=== PATIENT | male | born 1965 | race Caucasian/White ===

== ENCOUNTER 2022-12-31 14:58 | Outpatient (CLI) | payer OTHER, SELFPAY ==
--- NOTE | ~2022-12-31 | US_ITS ---
EXAMINATION: US venous doppler LE RT DATE: 12/31/2022 15:58 INDICATION: Right lower limb pain and swelling TECHNIQUE: Grayscale ultrasound images without and with compression and Doppler ultrasound images of the right lower extremity veins were obtained. COMPARISON: None. FINDINGS: The visualized portions of right common femoral vein, profunda (deep) femoral vein, femoral vein, pop liteal vein, peroneal trunk, posterior tibial veins, peroneal veins, gastrocnemius vein and greater s aphenous vein outflow are patent. There is a long narrow Carmona's cyst originating at the right poplit eal fossa and which extends 11 cm craniocaudally along the superficial margin of the gastrocnemius mu scle. 1.2 cm echogenic and shadowing loose osteochondral body within the Carmona's cyst. IMPRESSION: 1. No deep venous thrombosis in the right lower limb. 2. Carmona's cyst. Reviewed, dictated and finalized at location A.
== END 2022-12-31 14:59 | disposition home or self-care (01) ==
PROVIDERS: PCP Family Medicine; Visit Provider Nurse Practitioner
DX: R60.0 Localized edema (principal); M71.21 Synovial cyst of popliteal space [Baker], right knee
CPT/HCPCS: 93971

== ENCOUNTER → 2023-01-13 07:07 | Outpatient (CLI) | payer OTHER, SELFPAY ==
--- NOTE | ~2023-01-13 | XR_ITS ---
Right Knee Technique: AP, lateral, and sunrise views were obtained. Clinical History: Pain Findings: No fracture or dislocation is seen. Osseous alignment is anatomic. Joint spaces are preserv ed without degenerative or erosive change. There is a 1.1 cm mineralized/ossified density posterior a spect of the knee centrally.. No joint effusion is seen. Impression: 1.1 cm calcified/ossified structure at the posterior aspect of the knee in the midline. This could re flect loose body, possibly within a Carmona's cyst. Other nonspecific soft tissue lesion cannot be excl uded. Reviewed, dictated and finalized at location M. Impression: 1.1 cm calcified/ossified structure at the posterior aspect of the knee in the midline. This could reflect loose body, possibly within a Carmona's cyst. Other n onspecific soft tissue lesion cannot be excluded.
== END ==
PROVIDERS: PCP Nurse Practitioner; Visit Provider Nurse Practitioner
DX: M25.561 Pain in right knee (principal)
CPT/HCPCS: 73562

== ENCOUNTER 2023-03-13 06:39 | Outpatient (CLI) | payer OTHER, SELFPAY ==
--- NOTE | ~2023-03-13 | MR_ITS ---
MRI of the right knee Clinical history: Pain Technique: Coronal proton density and proton density-weighted images, sagittal proton-density and T2 fat-sat images, and axial proton-density fat-saturated images were acquired. Findings: Anterior and posterior cruciate ligaments are intact. Medial collateral ligament and the la teral collateral ligament complex are intact. Popliteus tendon is intact. There is possible subtle oblique tear of the posterior horn of the medial meniscus. No lateral menisc al tear seen. There is mild tricompartmental chondral thinning. Bone marrow signals are unremarkable. Extensor mechanism is intact. Small joint effusion is present. There is a large Carmona's cyst, which c ontains a 7 mm loose body. Impression: Large Carmona's cyst which contains a 7 mm loose body. Small underlying joint effusion. Questionable subtle oblique tear of the posterior horn of the medial meniscus. Mild tricompartmental chondral thinning. Reviewed, dictated and finalized at [facility]. Impression: Large Carmona's cyst which contains a 7 mm loose body. Small underlying joint eff usion. Questionable subtle oblique tear of the posterior horn of the medial meniscus. Mild tricompartmental chondral thinning.
== END 2023-03-13 06:40 | disposition home or self-care (01) ==
PROVIDERS: PCP Family Medicine; Visit Provider Nurse Practitioner
DX: M25.461 Effusion, right knee (principal); M17.11 Unilateral primary osteoarthritis, right knee; M71.21 Synovial cyst of popliteal space [Baker], right knee
CPT/HCPCS: 73721

== ENCOUNTER 2023-03-17 11:12 | Outpatient (CLI) | payer OTHER, SELFPAY ==
--- NOTE | ~2023-03-17 | US_ITS ---
EXAMINATION: US knee asp inj w image RT DATE: 03/17/2023 12:52 INDICATION: Right knee pain. TECHNIQUE: The procedure including the risks, benefits, and alternatives was discussed with the patie nt. Risks discussed included bleeding and infection. The patient understood the risks and agreed to p roceed. The skin overlying the right knee was prepped and draped in usual sterile fashion. Anestheti c was administered with 1% lidocaine subcutaneously. An 18 gauge needle was inserted into the right knee joint under ultrasound guidance. Fluid was aspirated. The entry site was cleaned and dressed. T here were no immediate complications. FINDINGS: Ultrasound images demonstrate the right knee joint effusion. There is a right Carmona's cyst. IMPRESSION: 1. Ultrasound-guided needle aspiration of the right knee joint yielding 15 mL clear, yellow fluid. Reviewed, dictated and finalized at location A. IMPRESSION: 1. Ultrasound-guided needle aspiration of the right knee joint yielding 15 mL c lear, yellow fluid.
[2023-03-17 13:54] LABS: Crystals Synovial Fluid None Seen (None Seen)
[2023-03-17 14:00] LABS: Color Synovial Fluid Yellow (Colorless); Source Synovial Fluid Synovial fluid
[2023-03-17 14:01] LABS: Appearance Synovial Fluid Clear (Clear)
[2023-03-17 14:02] LABS: Lymphocytes Synovial Fluid 3 %; Macrophages Synovial Fluid 84 %
[2023-03-17 14:03] LABS: Other Cells Synovial Fluid 13 %
[2023-03-17 14:04] LABS: Nucleated Cell Synovial Fluid 160 /uL (0-200); RBC Synovial Fluid < 2000 /uL (0-0)
== END 2023-03-17 11:13 | disposition home or self-care (01) ==
LOC: ANHIMG 11:13
PROVIDERS: PCP Family Medicine; Visit Provider Nurse Practitioner
DX: M25.561 Pain in right knee (principal); M25.461 Effusion, right knee
CPT/HCPCS: 20611; 87070; 87075; 87205; 89051; 89060

== ENCOUNTER 2023-03-26 11:36 | Emergency (ER) | payer OTHER, SELFPAY ==
[2023-03-26 11:49] VITALS: BP 145/82; PULSE 88; RESP 17; TEMP 36.2; O2SAT 99
[2023-03-26] MEDS: KETOROLAC (*BKC) 60 MG/2 ML VIAL IM (12:49)
[2023-03-26 12:57] LABS: Basophils Percent Auto 0.8 % (0.2-1.2); Eosinophils Absolute Auto 0.1 K/mm3 (0-0.3); Eosinophils Percent Auto 1.4 % (0-4.4); Hematocrit 40.1 % (42.0-52.0); Hemoglobin 13.7 g/dL (14.0-18.0); Immature Granulocyte Absolute 0.01 K/mm3 (0.00-0.031); Immature Granulocyte Percent A 0.2 % (0-0.5); Lymphocytes Absolute Auto 1.53 K/mm3 (0.9-3.2); Lymphocytes Percent Auto 29.8 % (18.3-44.2); Mean Corpuscular HGB Conc 34.2 g/dl (32-36); Mean Corpuscular Hemoglobin 30.2 pg (26-34); Mean Corpuscular Volume 88.3 fl (80-100); Mean Platelet Volume 9.3 fl (7.4-10.4); Monocytes Absolute Auto 0.6 K/mm3 (0.1-0.6); Monocytes Percent Auto 10.7 % (2.6-8.5); Neutrophils Absolute Auto 2.9 K/mm3 (1.3-6.7); Neutrophils Percent Auto 57.1 % (45.5-73.1); Platelet Count Result 185 k/mm3 (150-375); Red Blood Count 4.54 M/mm3 (4.6-6.20); Red Cell Distribution Width 12.5 % (11.5-14.5); White Blood Count 5.1 K/mm3 (4.5-10.0)
[2023-03-26 13:24] LABS: Alanine Aminotransferase 33 U/L (6-50); Albumin Level 4.2 g/dL (3.5-5.1); Alkaline Phosphatase 59 U/L (38-126); Anion Gap 4 mmol/L (8-16); Aspartate Amino Transferase 30 U/L (17-59); Bilirubin,Total 1.1 mg/dL (0.2-1.3); Blood Urea Nitrogen 15 mg/dL (9-20); CRP 0.5 mg/dL (<1.0); Calcium 8.6 mg/dL (8.4-10.2); Carbon Dioxide 28 mmol/L (22-30); Chloride 104 mmol/L (98-107); Estimated CRCL calculation 115 ml/min; Estimated Glomerular Filt Rate > 60; Glucose 88 mg/dL (65-110); Potassium 3.9 mmol/L (3.4-5.0); Sodium 136 mmol/L (137-145)
[2023-03-26 13:55] LABS: Erythrocyte Sedimentation Rate 11 mm/hr (0-20)
--- NOTE | 2023-03-26 14:02 | ED.LOWEXIN ---
HPI - Extremity Injury (Lower) General Chief Complaint: Extremity Injury, Lower Stated Complaint: R Knee pain/ possible infection Time Seen by Provider: 03/26/23 11:59 History of Present Illness HPI Narrative: Patient is a 57-year-old male who presents ER with right knee pain. Ongoing for months associate with lower extremity edema. Originally had a ultrasound that was negative for DVT. Subsequent imaging showed a meniscal tear as well as Carmona's cyst with a loose body. Patient underwent joint aspiration on 03/23/2023. The fluid had no organisms and only had a bit of blood in it. Patient reports increased pain with walking over the last couple days. He was concerned his knee may be warm and red. He was referred to the ER for further evaluation. Patient saw Dr. Connor. Related Data Allergies Allergy/AdvReac Type Severity Reaction Status Date / Time No Known Allergies Allergy Verified 03/26/23 11:59 Review of Systems Review of Systems: All systems reviewed & are unremarkable except as noted in HPI and below Constitutional: Constitutional: Denies chills, Denies fatigue and Denies fever(s) ENT: Denies nasal congestion and Denies sore throat Cardiovascular: Cardiovascular: Denies chest pain, Denies rapid heart rate and Denies radiating jaw, neck or arm pain Respiratory: Respiratory: Denies cough and Denies dyspnea Musculoskeletal: Musculoskeletal: Denies arthralgias and Reports joint swelling PMFSH Past Medical History Medical History (Updated 03/26/23 @ 14:33 by Tenzin Ang MD) Carmona's cyst Daytime hypersomnia Generalized anxiety disorder Major depressive disorder, recurrent, moderate Surgical History Surgical History (Updated 03/26/23 @ 14:04 by Tenzin Ang MD) No pertinent past surgical history Family History Family History Father Pancreatic cancer Social History Social History Smoking status: Never smoker Alcohol intake: current Drinks per week: 4 Substance use: never Current Housing: Decline to Answer Concerned About Future Housing: Decline to Answer Difficulty Paying Gas/Electric Bills: Decline to Answer Difficulty Paying for Meds: Decline to Answer Currently Unemployed: Decline to Answer Education: Decline to Answer Difficulty w/ Childcare or Family Care: Decline to Answer Living arrangements: with family Occupation/Education: occupation 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 HEAD: Normocephalic, atraumatic. ENT: Mucous membranes moist. CHEST: Clear to auscultation. No respiratory distress. HEART: Regular rate and rhythm. Normal peripheral pulses. ABDOMEN: Soft, nontender, nondistended. EXTREMITIES: Mild edema right lower extremity. Slight effusion right knee without overt redness or warmth. Normal range of motion. No joint line tenderness. SKIN: Warm, dry, no rash. NEURO: Alert and oriented x3. PSYCH: Normal mood and affect. Course Course Emergency Course: Patient resting comfortably. Exam not consistent with septic joint. Neither is the lab work. Discussed case with Dr. Connor. Discharge home with anti-inflammatories and rest. Vital Signs Vital signs: Vital Signs Temperature 97.2 F L 03/26/23 11:49 Pulse Rate 88 03/26/23 11:49 Respiratory Rate 17 03/26/23 11:49 Blood Pressure 145/82 H 03/26/23 11:49 Pulse Oximetry 99 03/26/23 11:49 Oxygen Delivery Room Air 03/26/23 11:49 Temperature 97.2 F L 03/26/23 11:49 Pulse Rate 88 03/26/23 11:49 Respiratory Rate 17 03/26/23 11:49 Blood Pressure 145/82 H 03/26/23 11:49 Pulse Oximetry 99 03/26/23 11:49 Oxygen Delivery Room Air 03/26/23 11:49 MDM - Extremity Injury (Lower) Lab Data 03/26/23 12:47 03/26/23 12:47
== END 2023-03-26 14:49 | disposition home or self-care (01) ==
PROVIDERS: Emergency Provider Emergency Medicine; PCP Family Medicine
DX: M25.561 Pain in right knee (principal); F41.1 Generalized anxiety disorder; F32.A Depression, unspecified
CPT/HCPCS: 36415; 80053; 85025; 85652; 86140; 96372; 99283; J1885